=== PATIENT | male | born 2000 | race Hispanic/Latino ===

== ENCOUNTER 2021-01-31 22:15 | Emergency (ER) | payer OTHER, SELFPAY ==
[2021-01-31 22:47] LABS: #Basophils 0.1 thou/uL (0.0-0.2); #Eosinphils 0.3 thou/uL (0.0-0.7); #Lymphocytes 1.9 thou/uL (1.20-3.40); #Monocytes 0.7 thou/uL (0.11-0.59); #Neutrophils 5.7 thou/uL (1.40-6.50); %Basophils 1.3 % (0.0-1.0); %Eosinophils 3.4 % (0.0-10.0); %Lymphocytes 22.4 % (21.0-51.0); %Monocytes 7.7 % (0.0-10.0); %Neutrophils 65.3 % (42.0-75.0); Hemoglobin 17.8 g/dL (14.0-18.0); Mean Corpuscular Hemoglobin 30.3 pg (27.0-31.0); Mean Corpuscular Volume 91.6 fL (78.0-98.0); Mean Platelet Volume 10.7 fL (7.4-10.4); Platelet Count 212 thou/uL (130-400); RBC Distribution Width 11.4 % (11.5-14.5); Red Blood Cell (RBC) Count 5.87 mill/uL (4.70-6.10); White Blood Cell (WBC) Count 8.7 thou/uL (4.8-10.8)
[2021-01-31 22:55] LABS: PTT 27.3 sec (22.9-36.1)
[2021-01-31 23:04] LABS: ALT (SGPT) 33 U/L (8-55); AST (SGOT) 19 U/L (5-34); Alcohol 218 mg/dL (Less than 10); Alkaline Phosphatase 114 U/L (40-110); Anion Gap 16 mmol/L (10-20); BUN (Urea Nitrogen) 10 mg/dL (8.9-20.6); Bilirubin, Total 0.2 mg/dL (0.2-1.2); Calc. Creatinine Clearance 0 mL/min (70-130); Calcium 9.2 mg/dL (7.8-10.44); Carbon Dioxide 22 mmol/L (22-29); Chloride 108 mmol/L (98-107); Globulin 2.8 g/dL (2.4-3.5); Glucose 116 mg/dL (70-105); Lipase 25 U/L (8-78); Protein, Total 7.8 g/dL (6.0-8.3); Sodium 143 mmol/L (136-145)
[2021-01-31] MEDS ORDERED: Potassium Chloride 20 MEQ TAB ONE (23:13)
== END 2021-01-31 23:30 ==
LOC: NAV ERS 22:15
DX: S20.229A Contusion of unspecified back wall of thorax, initial encounter (principal); S40.812A Abrasion of left upper arm, initial encounter; S40.811A Abrasion of right upper arm, initial encounter; S80.812A Abrasion, left lower leg, initial encounter; S00.81XA Abrasion of other part of head, initial encounter; F10.129 Alcohol abuse with intoxication, unspecified; Y90.7 Blood alcohol level of 200-239 mg/100 ml; E87.6 Hypokalemia; V59.9XXA Occupant (driver) (passenger) of pick-up truck or van injured in unspecified traffic accident, initial encounter
CPT/HCPCS: 70450; 72125; 80053; 80307; 83690; 85025; 85610; 85730; 94760